=== PATIENT | male | born 1945 | race Caucasian/White ===

== ENCOUNTER 2016-11-21 11:01 | Inpatient (IN) | payer OTHER, MEDICARE ==
[~2016-11-21] VITALS: Ht 185.4 cm; Wt 93.0 kg
--- NOTE | 2016-11-21 11:20 | NUR ---
71 Y/O MALE C/O "NOT FEELING WELL" SINCE THIS AM. PT STATES HE WAS AT WORK AND HE BEGAN TO FEEL HEART RACING, L SIDED NECK PAIN, AND "DRAINED". STATES "MY ARMS FELT HEAVY, I HAD NO ENERGY". STATES SYMPTOMS LASTED APPROX 1 HOUR. FAMILY MEMBER STATES SHE CHECKED PATIENT'S PULSE AND IT WAS 170 AT THE TIME OF SYMPTOMS. IN TRIAGE, PT STATES "I FEEL GREAT". DENIES ANY COMPLAINTS PRESENTLY. HR 90'S TAKEN TO ROOM 1 FOR EKG/EVAL
--- NOTE | 2016-11-21 11:30 | NUR ---
PT TO ER ROOM 1. PA STUDENT AT BEDSIDE FOR EVAL IV EST, BLOOD WORK DRAWN AND SENT TO LAB, EKG COMPLETED ON ARRIVAL TO ROOM PT DENIES PAIN, PALPITATIONS OR SOB AT THIS TIME, STATES "I FEEL FINE NOW" PT STATES HE HAD AN EPISODE THIS AM WHEN HE FELT PAIN TO THE LEFT SIDE OF HIS CHEST. STATES THAT HE FELT WEAK AND TIRED.
[2016-11-21 11:33] LABS: ABSOLUTE BASOPHIL COUNT 0.1 /CUMM (0.0-0.2); ABSOLUTE EOSINOPHIL COUNT 0 /CUMM (0.0-0.7); ABSOLUTE GRANULOCYTE CT 9.2 /CUMM (1.4-6.5); ABSOLUTE LYMPH COUNT 1.3 /CUMM (1.2-3.4); ABSOLUTE MONOCYTE COUNT 0.7 /CUMM (0.10-0.60); BASOPHIL % 0.6 % (0.0-2.0); EOSINOPHIL % 0.2 % (0-5); MEAN CORPUSCULAR HGB CONC 34.3 G/DL (33.0-37.0); MEAN CORPUSCULAR VOLUME 90.2 FL (80.0-94.0); MEAN PLATELET VOLUME 9.8 FL (7.4-10.4); PLATELET COUNT 158 /CUMM (130-400); RBC DISTRIBUTION WIDTH 13.1 % (11.5-14.5); RED BLOOD CELL CT 5.32 /CUMM (4.70-6.10); WHITE BLOOD CELL COUNT 11.4 /CUMM (4.8-10.8)
--- NOTE | 2016-11-21 12:07 | NUR ---
PA AT BEDSIDE FOR EVAL
--- NOTE | 2016-11-21 12:14 | ED CARDIAC/CP/PALPITATIONS ---
History of Present Illness General Chief Complaint: Chest Pain Stated Complaint: CP, INCREASED HR Source: patient Exam Limitations: no limitations Vital Signs & Intake/Output Vital Signs & Intake/Output Vital Signs Date Time Temp Pulse Resp B/P B/P Pulse O2 O2 Flow FiO2 Mean Ox Delivery Rate 11/21 1455 98.6 64 18 105/72 98 Room Air 11/21 1129 98 Room Air 11/21 1116 97.1 90 16 105/72 95 Room Air Allergies Coded Allergies: No Known Allergies (11/21/16) Reconcile Medications Aspirin (Aspirin*) 81 MG TAB.CHEW 1 TAB PO QPM HEART HEALTH (Reported) Atorvastatin Calcium 10 MG TABLET 1 TAB PO QPM CHOLESTEROL (Reported) Levofloxacin 500 MG TABLET 1 TAB PO DAILY ANTIBIOTIC, INFECTION (Reported) Lisinopril 10 MG TABLET 1 TAB PO DAILY HEART (Reported) Triage Note: 71 Y/O MALE C/O "NOT FEELING WELL" SINCE THIS AM. PT STATES HE WAS AT WORK AND HE BEGAN TO FEEL HEART RACING, L SIDED NECK PAIN, AND "DRAINED". STATES "MY ARMS FELT HEAVY, I HAD NO ENERGY". STATES SYMPTOMS LASTED APPROX 1 HOUR. FAMILY MEMBER STATES SHE CHECKED PATIENT'S PULSE AND IT WAS 170 AT THE TIME OF SYMPTOMS. IN TRIAGE, PT STATES "I FEEL GREAT". DENIES ANY COMPLAINTS PRESENTLY. HR 90'S TAKEN TO ROOM 1 FOR EKG/EVAL Triage Nurses Notes Reviewed? yes Onset: Abrupt Duration: hour(s):, resolved prior to arrival Timing: single episode today Quality/Severity: moderate, severe, sharp Location: central Radiation: shoulders, arms Activities at Onset: none HPI: 71-year-old male that has a history of hypertension and cholesterol and every day smoker comes into emergency room with complaints of sudden onset chest pain left-sided that began about 1.5 hours prior to arrival that lasted for an hour. The pain radiates down his left arm into his hands. Denies any shortness of breath cough fever chills. He was recently being treated for bronchitis. Patient is currently on levaquin and Sudafed for his cough. He has no prior history of coronary disease and has never had a heart attack before. He reports that right prior to arriving here the pain improved on its own and he currently has no pain. He was given a full strength 325 aspirin. Denies any abdominal pain. He has a history of a small abdominal aortic aneurysm that is being monitored. Patient is currently pain free. (STEFFANY NOEL) Past History Travel History Traveled to [place] past 21 day No Medical History Any Pertinent Medical History? see below for history Neurological: NONE EENT: NONE Cardiovascular: hypertension, HIGH CHOLESTEROL Respiratory: NONE Gastrointestinal: NONE Hepatic: NONE Renal: NONE Musculoskeletal: NONE Psychiatric: NONE Endocrine: NONE Blood Disorders: NONE Cancer(s): NONE MARKETING WRITER/Reproductive: NONE Surgical History Surgical History: non-contributory Psychosocial History What is your primary language Comoran Tobacco Use: Current Daily Use Daily Tobacco Use Amount/Type: => 5 Cigarettes daily Family History Hx Contributory? No (STEFFANY NOEL) Review of Systems Review of Systems Constitutional: Reports: no symptoms. EENTM: Reports: no symptoms. Respiratory: Reports: no symptoms. Cardiovascular: Reports: see HPI. GI: Reports: no symptoms. Genitourinary: Reports: no symptoms. Musculoskeletal: Reports: see HPI. Skin: Reports: no symptoms. Neurological/Psychological: Reports: no symptoms. Hematologic/Endocrine: Reports: no symptoms. Immunologic/Allergic: Reports: no symptoms. All Other Systems: Reviewed and Negative (STEFFANY NOEL) Physical Exam Physical Exam General Appearance: well developed/nourished, alert, awake Head: atraumatic Eyes: Bilateral: normal appearance. Ears, Nose, Throat: normal pharynx, hearing grossly normal Neck: normal inspection Respiratory: normal breath sounds, no respiratory distress Cardiovascular: regular rate/rhythm Gastrointestinal: soft Back: normal inspection Extremities: normal inspection, normal range of motion, no edema Neurologic/Psych: awake, alert, oriented x 3, normal gait, normal mood/affect Skin: intact, normal color Core Measures ACS in differential dx? Yes Severe Sepsis Present: No Septic Shock Present: No (STEFFANY NOEL) Progress Differential Diagnosis: AMI, aortic dissection, cholecystitis, costochondritis, hyperkalemia, hypovolemia, musculoskeletal pain, myocarditis, pancreatitis, pericarditis, pneumonia, pneumothorax, pulmonary embolism, PUD/GERD, PVCs/PACs, respiratory failure, rib fracture, sepsis, unstable angina, V-fib/V-Tach Plan of Care: Orders Procedure Date/time Status Pathway - chart 11/21 1516 Active Patient Data 11/21 1516 Active Code Status 05/15 1517 Active Admit to inpatient 11/21 1513 Active EKG 11/21 1428 Active TROPONIN LEVEL 11/21 1400 Complete Add-on Test (ER Only) 11/21 1214 Active Telemetry/Social Sciences Chair 11/21 1214 Active D-DIMER 11/21 1126 Complete TROPONIN LEVEL 11/21 1125 Complete COMPREHENSIVE METABOLIC PANEL 11/21 1125 Complete CBC WITHOUT DIFFERENTIAL 11/21 1125 Complete EKG 11/21 1103 Active Pathway - chart 11/21 UNK Active House Staff 11/21 UNK Active VTE Mechanical Prophylaxis 11/21 UNK Active Telemetry/Social Sciences Chair 11/21 UNK Active CASE MANAGEMENT CONSULT 11/21 UNK Active Current Medications Sig/Kvng Start time Last Medication Dose Stop Time Status Admin Multivitamins 1 TAB DAILY 11/22 1000 UNVr (Theragran Vitamins) Aspirin 325 MG ONCE ONE 11/21 1515 CAN (Aspirin) 11/21 1516 Laboratory Tests 11/21/16 1415: Troponin I 1.95 *H 11/21/16 1126: Anion Gap 15, Estimated GFR > 60, BUN/Creatinine Ratio 10.8, Glucose 100 H, Calcium 9.0, Total Bilirubin 1.0, AST 31, ALT 45, Alkaline Phosphatase 88, Troponin I 0.10, Total Protein 6.8, Albumin 4.1, Globulin 2.7, Albumin/Globulin Ratio 1.5, D-Dimer 390 H, CBC w Diff NO MAN DIFF REQ, RBC 5.32, MCV 90.2, MCH 31.0, RDW 13.1, MPV 9.8, Gran % 81.0 H, Lymphocytes % 11.8 L, Monocytes % 6.4, Eosinophils % 0.2, Basophils % 0.6, Absolute Granulocytes 9.2 H, Absolute Lymphocytes 1.3, Absolute Monocytes 0.7 H, Absolute Eosinophils 0, Absolute Basophils 0.1, PUBS MCHC 34.3 Diagnostic Imaging: Viewed by Me: Radiology Read, CT Scan. Discussed w/RAD: Radiology Read, CT Scan. Radiology Impression: SERVICE DATE: 11/21/16-0 EXAM TYPE: CAT - CTA CHEST- PULMONARY EMBOLISM EXAMINATION: CT ANGIOGRAM OF THE CHEST WITH CONTRAST (CT PULMONARY ANGIOGRAM FOR PE) CLINICAL INFORMATION: Chest pain and elevated D- dimer. Evaluate for pulmonary embolism. COMPARISON: CXR from 11/21/2016 TECHNIQUE: Prior to contrast administration, noncontrast localization images were obtained. Subsequently, multidetector volumetric imaging was performed from the thoracic inlet to below the diaphragms following the administration of 94 mL of Optiray 350 intravenous contrast. No contrast reaction reported. Sagittal, coronal, and MIP oblique sagittal reformatted images were obtained on the CT workstation, uploaded to PACS, and reviewed. Total exam dose-length product 438 mGy-cm FINDINGS: QUALITY OF STUDY/CONTRAST BOLUS: Satisfactory. PULMONARY ARTERIES: No filling defects in the main, lobar or segmental vessels. THORACIC AORTA: Mild atherosclerotic calcification of the thoracic aorta without intramural hematoma or dissection. The aortic root measures 3.7 cm diameter. At the level of the right pulmonary artery, the mildly dilated ascending thoracic aorta is 4 cm AP, 4 cm transverse diameter. At the mid arch, aorta is 3.2 cm transverse diameter. The proximal and distal descending aorta measure 3.5 cm and 3.3 cm in short axis diameter, respectively. LUNGS AND PLEURA: Huvx-of-kjizyepn centrilobular emphysema which has an upper lobe predominance. Mild paraseptal emphysema at the lung apices, as well. There is mild thickening of bronchial valentin in both lungs. Correlate for history of chronic cigarette smoking. Mild atelectasis in the dependent aspect of the right lower lobe. The left lower lobe bronchus is occluded and the left lower lobe is completely collapsed. Although the lower lobe bronchus may be occluded by mucous, an underlying nodule is difficult to exclude. There is no evidence of an infiltrative mass around the hilum. Mild secretions layer along the posterior wall of the left mainstem bronchus. MEDIASTINUM: The heart size is normal. Mild atherosclerotic calcification of coronary arteries. No pericardial effusion. The esophagus and thyroid gland are unremarkable. LYMPHATICS: No pathologic sized axillary lymph nodes. A right hilar lymph node is 1 cm short axis dimension. There is no evidence of bulky adenopathy at either hilum. A lymph node of the aortopulmonary window is mildly enlarged, measuring 1.1 cm short axis dimension. There are no enlarged paratracheal or subcarinal lymph nodes. UPPER ABDOMEN: Unremarkable. No reflux of contrast into the hepatic veins to suggest elevated right heart pressures. OSSEOUS STRUCTURES: Mild, multilevel degenerative disc space narrowing and osteophyte formation of the thoracic spine. 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 No aggressive osseous lesions. IMPRESSION: 1. No evidence of pulmonary embolism. 2. Pulmonary emphysema and mild bronchial wall thickening of both lungs; correlate for history of chronic cigarette smoking. 3. Left lower lobe is completely collapsed. This is probably due to mucous plugging of the left lower lobe bronchus; however, unable to exclude underlying endobronchial nodule. Further evaluation with bronchoscopy may be required. There is no gross tumor or lymphadenopathy identified at the left hilum. A nonspecific, borderline-enlarged lymph node in the aortopulmonary window is 1.1 cm short axis dimension. 4. Atherosclerotic aorta is mildly dilated. The ascending aorta measures 4 cm diameter at the level of the right pulmonary artery., EXAM TYPE: RAD - XRY-CHEST XRAY, PA AND LATERAL EXAMINATION: XR CHEST CLINICAL INFORMATION: Chest pain COMPARISON: None TECHNIQUE: 2 views of the chest were obtained. FINDINGS: Cardia mediastinal silhouette is within normal limits. Prominence of the pulmonary markings likely represent chronic change. No acute airspace opacity. There is no pleural effusion. IMPRESSION: No acute pulmonary disease. Chronic changes. DICTATED BY: TANYA UREÑA MD DATE/TIME DICTATED:11/21/161244 RN PICU:[facility] DATE/TIME TRANSCRIBED:11/21/161244 CONFIDENTIAL, DO NOT COPY WITHOUT APPROPRIATE AUTHORIZATION. Initial ED EKG: normal intervals, normal p-waves, normal sinus rhythm, rate (90) , RBBB Repeat EKG: unchanged (STEFFANY NOEL) Departure Departure Disposition: STILL A PATIENT Condition: Stable Clinical Impression Primary Impression: Non-STEMI (non-ST elevated myocardial infarction) Referrals: SAMIA FRANZ,ARELIS Storm (PCP/Family) Departure Forms: Customer Survey General Discharge Information (STEFFANY NOEL) Admission Note Spoke With: CALE HILTON MD Documentation of Exam: Documentation of any treatments & extenuating circumstances including Concerns Regarding Discharge (functional status, medication knowledge or non-compliance, living conditions, etc.) that warrant an admission rather than observation: [The patient needs admission to the ICU for serial troponins, cardiology consultation , inpatient echocardiogram, consider IV anti-coagulation] I've seen and personally examined the patient and I agree with the PAs evaluation. He had a sudden episode of chest pain earlier today. No chest pain now in the Emergency Department. Second troponin was positive. He is being admitted to the ICU by his behavioral health care manager Dr. Hilton for further evaluation and care (MERISSA NUGENT DO) Critical Care Note Critical Care Note Critical Care Time: 30-74 min (40) (DONNY PELAYO,STEFFANY)
--- NOTE | 2016-11-21 12:24 | NUR ---
PT TO AND FROM XRAY
[2016-11-21] MEDS ORDERED: LISINOPRIL10 M1 PO (12:31)
[2016-11-21] MEDS ORDERED: ATORVASTATIN CA10 M1 PO (12:31)
[2016-11-21] MEDS ORDERED: ASPIRIN81 M4 PO (12:32)
[2016-11-21] MEDS ORDERED: LEVOFLOXACIN500 M1 PO (12:32)
--- NOTE | 2016-11-21 12:57 | RADIOLOGY REPORT ---
EXAMINATION: XR CHEST CLINICAL INFORMATION: Chest pain COMPARISON: None TECHNIQUE: 2 views of the chest were obtained. FINDINGS: Cardia mediastinal silhouette is within normal limits. Prominence of the pulmonary markings likely represent chronic change. No acute airspace opacity. There is no pleural effusion. IMPRESSION: No acute pulmonary disease. Chronic changes.
--- NOTE | 2016-11-21 12:58 | NUR ---
PT WILL HAVE REPEAT TROPONIN AND EKG AT 1400 PT AND FAMILY AWARE PT REMAINS CHEST PAIN FREE, REMAINS NSR ON MONITOR
--- NOTE | 2016-11-21 13:18 | NUR ---
PT TO AND FROM CT SCAN AT THIS TIME, PLACED BACK ON MECHANICAL LABORATORY TECHNICIAN
--- NOTE | 2016-11-21 13:41 | CT SCAN REPORT ---
EXAMINATION: CT ANGIOGRAM OF THE CHEST WITH CONTRAST (CT PULMONARY ANGIOGRAM FOR PE) CLINICAL INFORMATION: Chest pain and elevated D-dimer. Evaluate for pulmonary embolism. COMPARISON: CXR from 11/21/2016 TECHNIQUE: Prior to contrast administration, noncontrast localization images were obtained. Subsequently, multidetector volumetric imaging was performed from the thoracic inlet to below the diaphragms following the administration of 94 mL of Optiray 350 intravenous contrast. No contrast reaction reported. Sagittal, coronal, and MIP oblique sagittal reformatted images were obtained on the CT workstation, uploaded to PACS, and reviewed. Total exam dose-length product 438 mGy-cm FINDINGS: QUALITY OF STUDY/CONTRAST BOLUS: Satisfactory. PULMONARY ARTERIES: No filling defects in the main, lobar or segmental vessels. THORACIC AORTA: Mild atherosclerotic calcification of the thoracic aorta without intramural hematoma or dissection. The aortic root measures 3.7 cm diameter. At the level of the right pulmonary artery, the mildly dilated ascending thoracic aorta is 4 cm AP, 4 cm transverse diameter. At the mid arch, aorta is 3.2 cm transverse diameter. The proximal and distal descending aorta measure 3.5 cm and 3.3 cm in short axis diameter, respectively. LUNGS AND PLEURA: Ypra-ac-[id number] centrilobular emphysema which has an upper lobe predominance. Mild paraseptal emphysema at the lung apices, as well. There is mild thickening of bronchial valentin in both lungs. Correlate for history of chronic cigarette smoking. Mild atelectasis in the dependent aspect of the right lower lobe. The left lower lobe bronchus is occluded and the left lower lobe is completely collapsed. Although the lower lobe bronchus may be occluded by mucous, an underlying nodule is difficult to exclude. There is no evidence of an infiltrative mass around the hilum. Mild secretions layer along the posterior wall of the left mainstem bronchus. MEDIASTINUM: The heart size is normal. Mild atherosclerotic calcification of coronary arteries. No pericardial effusion. The esophagus and thyroid gland are unremarkable. LYMPHATICS: No pathologic sized axillary lymph nodes. A right hilar lymph node is 1 cm short axis dimension. There is no evidence of bulky adenopathy at either hilum. A lymph node of the aortopulmonary window is mildly enlarged, measuring 1.1 cm short axis dimension. There are no enlarged paratracheal or subcarinal lymph nodes. UPPER ABDOMEN: Unremarkable. No reflux of contrast into the hepatic veins to suggest elevated right heart pressures. OSSEOUS STRUCTURES: Mild, multilevel degenerative disc space narrowing and osteophyte formation of the thoracic spine. 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 No aggressive osseous lesions. IMPRESSION: 1. No evidence of pulmonary embolism. 2. Pulmonary emphysema and mild bronchial wall thickening of both lungs; correlate for history of chronic cigarette smoking. 3. Left lower lobe is completely collapsed. This is probably due to mucous plugging of the left lower lobe bronchus; however, unable to exclude underlying endobronchial nodule. Further evaluation with bronchoscopy may be required. There is no gross tumor or lymphadenopathy identified at the left hilum. A nonspecific, borderline-enlarged lymph node in the aortopulmonary window is 1.1 cm short axis dimension. 4. Atherosclerotic aorta is mildly dilated. The ascending aorta measures 4 cm diameter at the level of the right pulmonary artery.
--- NOTE | 2016-11-21 14:18 | NUR ---
SST REDRAWN AND SENT BY THIS MST.
--- NOTE | 2016-11-21 15:00 | NUR ---
PT REMAINS RESING ON STRETCHER, OFFERS NO COMPLAINTS
--- NOTE | 2016-11-21 15:07 | NUR ---
CRITICAL TEST RESULTS [id number] BRIONNA MARTINEZ 71 M TESTS AND RESULTS: TROPONIN 1.95 Results received and read back by: DAO GRANDE Results received date and time: 11/21/16 1508 The following provider was notified of the results, and read the results back: GITA HINES Notified date and time: 11/21/16 at 1508
--- NOTE | 2016-11-21 15:15 | NUR ---
AND PA AT BEDSIDE TO DISCUSS RESULTS AND PLAN OF CARE WITH PT AND FAMILY. PT MEDICATED WITH ASPIRIN PER ORDER AT THIS TIME. PT REMAINS PAIN FREE AT THIS TIME.
--- NOTE | 2016-11-21 15:16 | NUR ---
HEART HEALTHY TRAY ORDERED FOR PT AT THIS TIME, PER PA IT WAS OK
--- NOTE | 2016-11-21 15:16 | History & Physical ---
MARIA L CRUMP MD 11/21/16 1516: General Information and HPI MD Statement: I have seen and personally examined BRIONNA MARTINEZ and documented this H&P. The patient is a 71 year old M who presented with a patient stated chief complaint of [shortness of breath and CP]. Source of Information: patient, old records History of Present Illness: This is a 71-year-old male with a past medical history of hypertension hyperlipidemia who presented to the [facility] with persistent shortness of breath and chest pain that started at around 9 AM in the morning. The patient was doing his regular daily office work when he started having this sharp chest pain which he rated 9 on 10, radiating to the left arm associated with numbness and tingling of his left hand fingers. He also experienced diaphoresis and had shortness of breath and had to stop from his paperwork. He was given 1 mg of aspirin in the field by his coworkers and then was brought to the emergency department for further evaluation. Since he has been here the patient has been pain-free and when I saw the patient he did not exhibit any signs of chest pain. The patient did not have any prior episodes similar to this. He recently had a stress test done after he was recommended by his primary care physician to diesel dinkey engineer. This stress test was reviewed in the emergency department end of within normal limits with the patient also recently The patient was recently treated with acute bronchitis and is left with 3 days antibiotic therapy of levofloxacin.(He was given a course of 10 days of antibiotic therapy started from last 11/14/2016). His symptoms of acute bronchitis has resolved Allergies/Medications Allergies: Coded Allergies: No Known Allergies (11/21/16) Home Med list Aspirin (Aspirin*) 81 MG TAB.CHEW 1 TAB PO QPM HEART HEALTH (Reported) Atorvastatin Calcium 10 MG TABLET 1 TAB PO QPM CHOLESTEROL (Reported) Atorvastatin Calcium 80 MG TABLET 80 MG PO 1700 HYPERLIPIDEMIA Heparin Sod,Pork in 0.45% NaCl (Heparin-1/2NS 25,000 Units/250) 25,000 UNIT/250 ML (100 UNIT/ML) IV.SOLN 500 ML IV CONTINOUS INFUSION HEART HEALTH Levofloxacin 500 MG TABLET 1 TAB PO DAILY ANTIBIOTIC, INFECTION (Reported) Lisinopril 10 MG TABLET 1 TAB PO DAILY HEART (Reported) Metoprolol Tartrate 25 MG TABLET 12.5 MG PO BID BLOOD PRESSURE Ticagrelor (Brilinta) 90 MG TABLET 90 MG PO DAILY HEART HEALTH Past History Travel History Traveled to [place] past 21 day No Medical History Neurological: NONE EENT: NONE Cardiovascular: hypertension, HIGH CHOLESTEROL Respiratory: NONE Gastrointestinal: NONE Hepatic: NONE Renal: NONE Musculoskeletal: NONE Psychiatric: NONE Endocrine: NONE Blood Disorders: NONE Cancer(s): NONE INTERNAL CONSULTANT/Reproductive: NONE Surgical History Surgical History: non-contributory Past Family/Social History Family History Relations & Conditions if any FATHER Relation not specified for: FH myocardial infarction male first degree age known Psychosocial History Where do you live? Home Who Do You Live With? spouse, child Services at Home: None Primary Language: [place] Smoking Status: Current Everyday Smoker ETOH Use: denies use Review of Systems Review of Systems Constitutional: Reports: see HPI. Cardiovascular: Reports: see HPI. Denies: chest pain, edema. Respiratory: Reports: short of breath. Denies: cough, hemoptysis, sputum production, stridor. Exam & Diagnostic Data Last 24 Hrs of Vital Signs/I&O Vital Signs Date Time Temp Pulse Resp B/P B/P Pulse O2 O2 Flow FiO2 Mean Ox Delivery Rate 11/21 1455 98.6 64 18 105/72 98 Room Air 11/21 1129 98 Room Air 11/21 1116 97.1 90 16 105/72 95 Room Air Intake & Output 11/21 1600 11/21 0800 11/21 0000 Intake Total Output Total Balance Patient 205 lb Weight Weight Reported by Patient Measurement Method Physical Exam General Appearance Alert, Oriented X3, Cooperative Skin No Rashes, No Breakdown Skin Temp/Moisture Exam: Cool/Dry Sepsis Skin Exam (color): Normal for Ethnicity HEENT Atraumatic, PERRLA Neck Supple, No JVD Lymphatic Axillary nl, Cervical nl Cardiovascular Regular Rate, Normal S1, Normal S2 Lungs Clear to Auscultation, Normal Air Movement, b/l decreased airway entry Assessment/Plan Assessment: This is a 71-year-old male with a past medical history of hypertension, every day smoker, hyperlipidemia presented to the [facility] with persistent shortness of breath and diaphoresis and shortness and chest pain Is at the time of admission showed blood pressure 105/70, respiration rate of 16 , heart rate of 90, saturation of 95% in room air, afebrile, Labs shows WBC of 11,000, normal hemoglobin and hematocrit, creatinine of 1.2, GFR greater than 60, troponin of 0.10 and then 1.91 EKG shows normal sinus rhythm with ST depressions in lead 23 aVF Chest x-ray unremarkable CTA was negative for any acute pulmonary embolism but was significant for emphysema to Ms. changes Assessment 1. Acute chest pain in the setting of non-ST elevation IL. The patient's TYRELL score is 4 which puts him in intermediate risk 2. History of hypertension 3. History of hyperlipidemia 4. Every day smoker and acute Bronchitis cureently being treated with Levofloxacin,left with 3 days of abx therapy Plan Admit to critical care unit for hemodynamic monitoring Trend serial troponins and EKG next troponin is at 8 PM I will start the patient on IV heparin(the patient refused direct rectal examination as he had colonoscopy 1 month back which was negative for any polyps or any bleeding) The patient should be on a high-dose statin, 40 mg(his home dose is 10 mg only). He should be on a P2 Y 12 inhibitor. Hence I will start the patient on Plavix 325 mg loading dose and 75 mg daily Patient should be kept nothing by mouth after midnight for possible transfer cardiac cath in the morning Smoking cessation counseling C/w Levofloxacin for acute bronchitis(3 doses lefts) Asess lipid panel,hba1c we can hold off on the beta james at this point that the patient is slightly hypotensive and we discussed with the diesel dinkey engineer for further recommendations on this point DVT prophylaxis with IV heparin as mentioned above Patient is full code Plan discussed in detail with the patient and the family at bedside. As Ranked By This Provider Problem List: 1. Non-STEMI (non-ST elevated myocardial infarction) Core Measures/Miscellaneous Acute Coronary Syndrome ACS Diagnosis: Yes Date of most recent Echo 10/10/16 Last Known EF % 60 TERESITA/ARB For EF <40% No ASA W/I 24hr of admit Yes Beta-James W/I 24hrs No No Beta-James d/t Hypotension LDL assessed W/I 24 hrs Yes Currently on Statin Yes Cerebrovascular Accident CVA/TIA Diagnosis: No Congestive Heart Failure CHF Diagnosis: No Venous Thromboembolism VTE Risk Factors: Acute medical illness, Age > 40 No [facility] VTE prophylaxis d/t: VTE low risk, No contraindications No VTE Pharm Prophylaxis d/t: VTE low risk, No contraindications VTE Diagnosis: No VTE Type: NONE VTE Confirmed by (Test): NONE Severe Sepsis Severe Sepsis Present: No Septic Shock Septic Shock Present: No Miscellaneous Documentation Attending Case Discussed With: dr kohli Primary Care Physician: ARELIS GRACIA MD Patient sees these Specialists none Level of Patient Care: Critical Care (CRI) CALE KOHLI MD 11/21/16 1806: Attending MD Review Statement Attending Statement Attending MD Statement: examined this patient, discuss w/resident/PA/BUYER PLANNER, agreed w/resident/PA/BUYER PLANNER, discussed with family, reviewed EMR data (avail), discussed with nursing, reviewed images, amended to note Attending Assessment/Plan: The patient is a 71-year-old male with history of hypertension and hyperlipidemia who presents with chest discomfort. He was recently treated with diabetic therapy for acute bronchitis. He is followed in the office by Dr. Gamboa from my group. He presented with complaint of dull left-sided chest discomfort which lasted for several hours and resolved in the emergency department. He is now pain-free. He notes intermittent shortness of breath. No diaphoresis. No palpitations. No nausea or vomiting. Review of systems: No fever. No chills. No rash. No tremor. No melena. All other systems were reviewed, and were noted to be negative. Physical examination: Gen: The patient is in no acute distress HEENT: Normal nose, ears, and oropharynx. Pupils equal bilaterally. Conjunctiva normal. Neck: Supple with no JVD, no masses, and no thyromegaly Lungs: Decreased breath sounds in left lower lobe, with normal respiratory effort Heart: RRR, S1, S2, no murmurs. No peripheral edema, 2+ pulses in the lower extremities bilaterally Abdomen: Soft, nontender, no masses. No hepatomegaly. No splenomegaly Extremities: No clubbing or cyanosis. Normal muscle strength in the upper and lower extremities Skin: Normal skin turgor with no skin ulcers or lesions noted. Neuro: Cranial nerves intact. Sensation intact Psych: Alert and oriented 3 with appropriate affect EKG tracing is independently reviewed, and reveals normal sinus rhythm at 90 with right bundle-branch block Stress echo 09/30/16: Normal left ventricular function. No evidence of ischemia or infarct. Chest x-ray: No acute pulmonary disease. Chronic changes. CTA chest: 1. No evidence of pulmonary embolism. 2. Pulmonary emphysema and mild bronchial wall thickening of both lungs; correlate for history of chronic cigarette smoking. 3. Left lower lobe is completely collapsed. This is probably due to mucous plugging of the left lower lobe bronchus; however, unable to exclude underlying endobronchial nodule. Further evaluation with bronchoscopy may be required. There is no gross tumor or lymphadenopathy identified at the left hilum. A nonspecific, borderline-enlarged lymph node in the aortopulmonary window is 1.1 cm short axis dimension. 4. Atherosclerotic aorta is mildly dilated. The ascending aorta measures 4 cm diameter at the level of the right pulmonary artery. Assessment: The patient is a 71-year-old male with history of hypertension and hyperlipidemia, who had a recent normal stress echo 2 months ago. He was diagnosed 3 days ago with bronchitis, and now presents with left-sided chest discomfort. Second troponin is positive, suggestive of non-ST elevation myocardial infarction. He is pain-free now. CTA of the chest shows collapse of left lower lobe and mucous plugging. Plain: * Admit for NSTEMI * IV heparin per protocol * ASA 325 mg givein. Continue 81 mg daily * Brilinta 180 mg po x 1 and then 90 mg daily * Metoprolol 12.5 mg po bid * Stop Plavix (75 mg already given) * Atorvastatin 80 mg daily * NPO after MN * If pt. remains stable overnight, will transfer to [facility] in the AM for cardiac catheterization and possible PCI * Pulmonary consult for left lower lobe collapse
--- NOTE | 2016-11-21 15:55 | NUR ---
PT SITTING UP EATING FOOD TRAY AT THIS TIME
--- NOTE | 2016-11-21 16:11 | NUR ---
HEPARIN STARTED AT THIS TIME PER ORDER, VERIFIED WITH DAO METZGER PRIOR TO ADMINISTRATION RATE: 20ML/HR
--- NOTE | 2016-11-21 16:18 | NUR ---
[facility] CALLED FOR MEDS AT THIS TIME
--- NOTE | 2016-11-21 17:45 | NUR ---
PT REMAINS PAIN FREE AT THIS TIME, RESTING ON STRETCHER FAMILY REMAINS AT BEDSIDE
--- NOTE | 2016-11-21 17:46 | NUR ---
PT ADMITTED TO ROOM 112
--- NOTE | 2016-11-21 18:01 | NUR ---
ATTEMPTED TO CALL REPORT TO ICU, RN WILL CALL BACK
--- NOTE | 2016-11-21 18:16 | NUR ---
PT MEDICATED PER EMAR AT THIS TIME. DR HILTON AT BEDSIDE
--- NOTE | 2016-11-21 18:41 | NUR ---
REPORT GIVEN TO FLOOR DISITBUTION CALLED FOR TRANSORT
--- NOTE | 2016-11-21 19:12 | Discharge Summary ---
Visit Information Visit Dates Admission Date: 11/21/16 Discharge Date: 11/22/2016 Hospital Course Course Attending Physician: CALE HILTON MD Primary Care Physician: SAMIA FRANZ,ARELIS Storm Other Care Providers: Consulting Request: Consulting Specialty: Cardiology Consulting Physician: Dr Hilton Reason for Consult: NSTEMI Hospital Course: Patient is a 71-year-old male with past medical history of smoking, hypertension , hyperlipidemia presented to the ED for shortness of breath and chest pain since 9 AM in the morning. Vitals at admission showed a temperature of 97.1, pulse 90, respirations 16, blood pressure of 105/72. Labs showed a white count of 11.4, sodium 139, potassium 3.8, troponin 1.95, normal thyroid function, normal lipid levels She is, d-dimer 390. EKG showed normal sinus rhythm with ST depressions in lead II,III and aVF Chest x-ray showed no acute pulmonary disease. Chest CTA showed no evidence of pulmonary embolism. Emphysematous changes, Left lower lobe collapse questionable mucous plugging, mild dilation of ascending aorta at 4 cm. Problem list: 1. Non-ST elevation CO: Patient had a classic presentation of NSTEMI with substernal chest pain 10/10 in intensity radiating to the left arm with numbness and tingling of his fingers. He received 1 mg aspirin in the field by his coworkers and was brought to the ED. In the ED he received 325 aspirin, IV morphine, and was started on IV heparin (patient denied rectal examination as he had colonoscopy recently which was normal). Initial troponin was elevated at 1.[address] depressions in leads II, III and aVF. Patient remained completely chest pain-free after coming to the hospital. Troponins trended up to 2.61. As per the patient, his recent stress test and echocardiogram 1 month ago was normal.Since his TYRELL score was 4, and the plan was to send him for cardiac catheterization. Patient was started on beta doretha metoprolol 12.5 twice a day, high-dose statin, loaded with Brilinta and closely monitored for hemodynamic stability in the ICU overnight. He was maintained nothing by mouth for a cardiac catheterization at [facility] in a.m. 2. Hypertension: Patient currently on metoprolol 12.5 twice a day with holding parameters. 3. Hyperlipidemia: Lipid panel normal. Maintained on Atorvastatin 40 mg daily. 4. A previous smoker: Smoking cessation counseling 5. DVT Prophylaxsis : IV heparin 6. NPO for cardiac cath in am 7. Full code Allergies: Coded Allergies: No Known Allergies (11/21/16) Disposition Summary Disposition Principal Diagnosis: NSTEMI Additional Diagnosis: Hypertension Discharge Disposition: other general hospital Discharge Instructions General Discharge Information Code Status: Full Code Patient's Diet: Nothing by mouth after midnight for cardiac catheterization in a.m. Patient's Activity: As tolerated Follow-Up Instructions/Appts: Please follow-up with the electrical systems designer after discharge. Medications at Discharge Discharge Medications: Stop taking the following medications: Lisinopril (Lisinopril) 10 MG TABLET ORAL DAILY Atorvastatin Calcium (Atorvastatin Calcium) 10 MG TABLET ORAL Every night Qty = 90 Continue taking these medications: Aspirin (Aspirin*) 81 MG TAB.CHEW 1 Tablet ORAL Every night Levofloxacin (Levofloxacin) 500 MG TABLET 1 Tablet ORAL DAILY Qty = 10 Start taking the following new medications: Ticagrelor (Brilinta) 90 MG TABLET 90 Milligram ORAL DAILY Days = 30 No Refills Atorvastatin Calcium (Atorvastatin Calcium) 80 MG TABLET 80 Milligram ORAL 5 PM Days = 30 No Refills Metoprolol Tartrate (Metoprolol Tartrate) 25 MG TABLET 12.5 Milligram ORAL TWICE DAILY Days = 30 No Refills Heparin Sod,Pork in 0.45% NaCl (Heparin-1/2NS 25,000 Units/250) 25,000 UNIT/250 ML (100 UNIT/ML) IV.SOLN 500 Milliliters INTRAVEN CONTINUOUS INFUSION Days = 1 No Refills Copies To: LIDA FRANZ,CALE
--- NOTE | 2016-11-21 19:48 | NUR ---
REC'D THE PT FROM THE ER AT 1850. PT IS A&OX3,LOWRY. TRANSFERRED SELF TO THE BED WITHOUT INCIDENT. OFFERS NO C/O CHEST PAIN. PT IS ON A HEPARIN GTT AT 10.4U//KG/HR OR 20ML/HR INFUSING VIA A #20 TO THE RAC. ORIENTED TO THE CRCU ROUTINE. GIVEN PT'S WALLET. PT MADE AWARE OF PLAN TO TRANSFER THE PT TO [facility] IN THE AM TO HAVE A CARDIAC CATH PERFORMED. ALSO MADE AWARE CANOT EAT ANYTHING AFTER MIDNIGHT. PT REFUSED VRE SWAB.
[2016-11-21] MEDS ORDERED: HEPARIN-1/25000 UNIT IV (19:56)
[2016-11-21] MEDS ORDERED: METOPROLOL TART25 M1 PO (19:58)
[2016-11-21] MEDS ORDERED: BRILINTA90 M1 PO (19:58)
[2016-11-21] MEDS ORDERED: ATORVASTATIN CA80 M1 PO (19:58)
[2016-11-21 20:00] VITALS: BP 128/72
--- NOTE | 2016-11-21 20:00 | Patient Discharge Instructions ---
Discharge Instructions General Discharge Information You were seen/treated for: Chest pain, NSTEMI Special Instructions: You're being transferred to [facility] for cardiac catheterization Please follow up with Dr. Fernández within 2 weeks of discharge for further care and management of left lower lobe mucous plug. Diet Continue normal diet: No Recommended Diet: NPO FOR CARDIAC CATH Activity Full Activity/No Limits: Yes ( TOLERATED) Acute Coronary Syndrome Inclusion Criteria At DC or during hospital stay patient has or had the following: ACS DIAGNOSIS Yes Discharge Core Measures Meds if any: Prescribed or Continued at Discharge TERESITA/ARB if EF <40% No Aspirin Yes Beta-James Yes Statin Yes Meds if any: NOT Prescribed or Continued at Discharge No TERESITA/ARB d/t LOW BLOOD PRESSURE (ECHO NOT AVAILABLE FOR EF) Congestive Heart Failure Inclusion Criteria At DC or during hospital stay patient has or had the following: CHF DIAGNOSIS No Discharge Core Measures Meds if any: Prescribed or Continued at Discharge Meds if any: NOT Prescribed or Continued at Discharge Cerebrovascular accident Inclusion Criteria At DC or during hospital stay patient has or had the following: CVA/TIA Diagnosis No Discharge Core Measures Meds if any: Prescribed or Continued at Discharge Meds if any: NOT Prescribed or Continued at Discharge Venous thromboembolism Inclusion Criteria VTE Diagnosis No VTE Type NONE VTE Confirmed by (Test) NONE Discharge Core Measures - Per Current guidelines, there needs to be overlap - treatment for the first 5 days of Warfarin therapy. - If discharged on Warfarin prior to 5 days of - overlap therapy, the patient will need to be - assessed for post discharge needs including - *Post discharge parental anticoagulation - *Warfarin and/or parental anticoagulation education - *Follow up date to check INR post discharge At least 5 days overlap therapy as Inpatient No Meds if any: Prescribed or Continued at Discharge Note: Overlap Therapy is Warfarin and Anticoagulant Meds if any: NOT Prescribed or Continued at Discharge
[2016-11-21 21:58] LABS: PTT 57 SEC (25-37)
[2016-11-22] VITALS: BP 126/80
--- NOTE | 2016-11-22 02:51 | NUR ---
pt c/o chest heaviness and dull ache. states that previous episode started that way. per pt pain is not as bad as chestpain that brought him to the er but worse than earlier tonight. pt ekg and troponin done at time of pain. dr. nieves made aware of above. pt given oxygen 2L nc. pt hear rate of 43-50 also reported to md. awaiting md to evaluate pt.
[2016-11-22 05:46] LABS: ABSOLUTE BASOPHIL COUNT 0.1 /CUMM (0.0-0.2); ABSOLUTE EOSINOPHIL COUNT 0.1 /CUMM (0.0-0.7); ABSOLUTE GRANULOCYTE CT 6.4 /CUMM (1.4-6.5); ABSOLUTE LYMPH COUNT 2.1 /CUMM (1.2-3.4); ABSOLUTE MONOCYTE COUNT 0.7 /CUMM (0.10-0.60); BASOPHIL % 0.7 % (0.0-2.0); GRANULOCYTE % 68.6 % (42.2-75.2); HEMATOCRIT 44.8 % (42-52); MEAN CORPUSCULAR HGB 31.1 PG (27.0-31.0); MEAN CORPUSCULAR HGB CONC 33.9 G/DL (33.0-37.0); MEAN CORPUSCULAR VOLUME 91.9 FL (80.0-94.0); MEAN PLATELET VOLUME 9.9 FL (7.4-10.4); PLATELET COUNT 145 /CUMM (130-400); RBC DISTRIBUTION WIDTH 13.1 % (11.5-14.5); RED BLOOD CELL CT 4.88 /CUMM (4.70-6.10); WHITE BLOOD CELL COUNT 9.3 /CUMM (4.8-10.8)
[2016-11-22 05:53] LABS: PTT 95 SEC (25-37)
--- NOTE | 2016-11-22 07:02 | PN- Resident CRCU ---
Subjective HPI/CRCU Issues: Mr. Mcrae was admitted yesterday evening after noted NSTEMI under attending Dr. Salomon Templeton MD. Patient did note chest pain over night for which he received nitro paste. Patient continues to endorse subtle substernal chest discomfort without current left arm pain/numbness/tingling. He also notes slight respiratory discomfort which he attributes to his bronchitis that he is currently undergoing treatment for. Patient is amenable to transfer for cardiac cath today. 24 Hour Events: Telemetry events: Patient noted to be bradycardic to 40s, otherwise no significant events. Troponin trend: 0.1--> 1.96 --> 2.61--> 1.67 with non-specific ST changes. Vital signs last 24 hours: T 97.6-98.0, HR 44-63, RR 16-24, BP 116-154/79-104, O2 saturation 94-98% on room air transitioned to 2 L NC. Total intake last 24 hours: 950 cc Total output: 1400 cc Objective Vital Signs & I&O Last 8 Hrs of Vitals and I&O: T 97.6-98.0, HR 44-63, RR 16-24, BP 116-154/79-104, O2 saturation 94-98% on room air transitioned to 2 L NC. Exam General Appearance: well developed/nourished, no apparent distress, alert, awake , comfortable Head: atraumatic, normal appearance Ears, Nose, Throat: normal pharynx, normal ENT inspection, hearing grossly normal Neck: normal inspection, supple, No JVD Respiratory: normal breath sounds, chest non-tender, no respiratory distress Cardiovascular: regular rate/rhythm Gastrointestinal: normal bowel sounds, soft, non-tender Extremities: normal inspection, normal range of motion, no edema Cranial Nerves: normal hearing, normal speech Skin: intact, normal color, warm/dry Nutrition Nutrition: NPO Current Medications: Current Medications Sig/Kvng Start time Last Medication Dose Route Stop Time Status Admin Acetaminophen 650 MG Q6P PRN 11/21 1530 AC 11/22 PO 0839 Acetaminophen/ 1 TAB Q6P PRN 11/21 1530 AC Hydrocodone Bitart PO Aspirin 81 MG DAILY 11/22 1000 AC PO Aspirin 0 .STK-MED ONE 11/21 1517 DC PO Aspirin 325 MG ONCE ONE 11/21 151 DC 11/21 PO 05/15 1516 1515 Aspirin 325 MG ONCE ONE 11/21 1515 CAN PO 11/21 1516 Atorvastatin Calcium 80 MG 1700 11/22 1700 AC PO Atorvastatin Calcium 40 MG ONCE ONE 11/21 1845 DC 11/21 PO 11/21 184 2128 Atorvastatin Calcium 40 MG 1700 11/21 1700 DC 11/21 PO 1632 Clopidogrel Bisulfate 75 MG DAILY 11/21 1610 DC 11/21 PO 1632 Heparin Sodium 2,790 UNIT BOLUS ONE 11/21 2300 DC 11/21 (Porcine) IV 11/21 2301 2300 Heparin Sodium 5,000 UNIT .STK-MED ONE 11/21 2300 DC (Porcine) IV 11/21 2301 Heparin Sodium 25,000 UNIT Q24H 11/21 1545 AC 11/21 (Porcine) IV 1609 Sodium Chloride 500 ML Levofloxacin 500 MG DAILY 11/21 1630 AC 11/21 PO 11/23 1001 1815 Magnesium Sulfate 1 GM ONCE ONE 11/22 0730 AC 11/22 Dextrose/Water 100 ML IV 11/22 1129 0844 Metoprolol Tartrate 12.5 MG BID 11/21 1845 AC 11/21 PO 2127 Morphine Sulfate 2 MG Q4P PRN 11/21 1530 AC IV Multivitamins 1 TAB DAILY 11/22 1000 AC PO Nitroglycerin 1 GM ONCE ONE 11/22 0245 DC 11/22 TOP 11/22 0246 0301 Norepinephrine 4 MG Q24H 11/21 2145 DC Sodium Chloride 250 ML IV Potassium Chloride 10 MEQ Q1H 11/22 0930 UNVr IV 11/22 1031 Senna/Docusate Sodium 2 TAB ONCE ONE 11/21 2030 DC 11/21 PO 11/21 2031 2127 Ticagrelor 90 MG DAILY 11/22 1000 AC PO Ticagrelor 180 MG ONCE ONE 11/21 1845 DC 11/21 PO 11/21 184 2130 CXR Findings: IMPRESSION: No acute pulmonary disease. Chronic changes. EKG Findings: NSR, ST changes lead II, III, aVF CT Scan Findings: Chest CTA: IMPRESSION: 1. No evidence of pulmonary embolism. 2. Pulmonary emphysema and mild bronchial wall thickening of both lungs; correlate for history of chronic cigarette smoking. 3. Left lower lobe is completely collapsed. This is probably due to mucous plugging of the left lower lobe bronchus; however, unable to exclude underlying endobronchial nodule. Further evaluation with bronchoscopy may be required. There is no gross tumor or lymphadenopathy identified at the left hilum. A nonspecific, borderline-enlarged lymph node in the aortopulmonary window is 1.1 cm short axis dimension. 4. Atherosclerotic aorta is mildly dilated. The ascending aorta measures 4 cm diameter at the level of the right pulmonary artery. Impression/Plan Impression/Problem List Impression: Mr. Mcrae is a pleasant 71 year old male with PMH HTN, HLD and tobacco abuse who presented to [place] on 11/21/16 with chief complaint of shortnesss of breath, diaphoresis and substernal chest pain radiating down the left arm. Vital signs on admission: BP 105/70, RR 16, HR 90, O2 saturation of 95% on room air, afebrile. EKG showed NSR with ST depressions leads 2, 3, aVF. CXR was unremarkable. CTA showed no PE, definitive emphysema and left lower lobe collapse. Patient is currently admitted to the ICU and the following is the management: 1. NSTEMI * Continuous tele monitoring * IV heparin per protocol, hold heparin on transfer per Dr. Yokasta MD * ASA 81 daily, brilinta 90 mg PO daily, atorvastatin 80 mg PO daily * Discontinue metoprolol in setting of sinus bradycardia * Patient NPO for transfer to [facility] for cardiac cath today with possible stent placement, accepting physician Dr. Imer MD * Nitrobid PRN chest pain 2. Bronchitis * Continue levofloxacin to complete course that was started as an outpatient 3. LLL collapse * Further pulm workup as an outpatient with Dr. Jolene MD 2 weeks after discharge from * Consult information given to patient * Continue supplemental O2 as needed 4. Tobacco abuse * Cigarette cessation information provided FULL CODE DVTP: IV heparin NPO Mild pain pathway Problem List: 1. Non-STEMI (non-ST elevated myocardial infarction) 2. HTN (hypertension) 3. HLD (hyperlipidemia) 4. Tobacco abuse Pain Ratin Pain Location: Substernal Tomorrow's Labs & Rationales: Transfer to today. Plan DVT/Prophylaxis: pharmacological Code Status: Full Code
[2016-11-22 09:00] VITALS: BP 106/70
--- NOTE | 2016-11-22 10:16 | PN- Cardiology ---
Subjective Subjective: The patient reports that he is feeling well this morning. He had a brief recurrence of chest discomfort at 3:00 AM which responded immediately to sublingual nitroglycerin. No further chest pain. He notes occasional mild shortness of breath. No palpitations. No lightheadedness or dizziness. No nausea or vomiting. Objective Vital Signs and I&Os Vital Signs Date Time Temp Pulse Resp B/P B/P Pulse O2 O2 Flow FiO2 Mean Ox Delivery Rate 11/22 0407 96 Nasal 2.0L Cannula 11/22 0000 95 Room Air 11/22 0000 98.0 54 24 126/80 95 Room Air 11/21 2127 62 144/87 11/21 2000 97 Room Air 11/21 2000 97.6 60 24 128/72 98 Room Air 11/21 1835 97.4 60 18 110/76 94 Room Air 11/21 1632 98.6 65 18 121/76 98 Room Air 11/21 1455 98.6 64 18 105/72 98 Room Air 11/21 1129 98 Room Air 11/21 1116 97.1 90 16 105/72 95 Room Air Intake & Output 11/22 1600 11/22 0800 11/22 0000 11/21 1600 11/21 0800 11/21 0000 Intake Total 176 774 Output Total 600 1400 Balance -424 -626 Intake, IV 176 134 Intake, Oral 0 640 Number 2 Bowel Movements Output, Urine 600 1400 Patient 205 lb 205 lb Weight Weight Reported by Patient Reported by Patient Measurement Method Physical Exam: Gen: NAD HEENT: normal Lungs: clear to auscultation, normal resp. effort Heart: RRR, S1, S2, no murmurs Abdomen: Soft, nontender, no masses Extremities: No clubbing, cyanosis, or edema. Neuro: Alert and oriented x 3, cranial nerves intact Current Medications: Current Medications Sig/Kvng Start time Last Medication Dose Route Stop Time Status Admin Acetaminophen 650 MG Q6P PRN 11/21 1530 AC 11/22 PO 0839 Acetaminophen/ 1 TAB Q6P PRN 11/21 1530 AC Hydrocodone Bitart PO Aspirin 81 MG DAILY 11/22 1000 AC PO Aspirin 0 .STK-MED ONE 11/21 1517 DC PO Aspirin 325 MG ONCE ONE 11/21 1515 DC 11/21 PO 11/21 151 1515 Aspirin 325 MG ONCE ONE 11/21 1515 CAN PO 11/21 1516 Atorvastatin Calcium 80 MG 1700 11/22 1700 AC PO Atorvastatin Calcium 40 MG ONCE ONE 11/21 1845 DC 11/21 PO 11/21 Atorvastatin Calcium 40 MG 1700 11/21 1700 DC 11/21 PO 1632 Clopidogrel Bisulfate 75 MG DAILY 11/21 1610 DC 11/21 PO 1632 Heparin Sodium 2,790 UNIT BOLUS ONE 11/21 2300 DC 11/21 (Porcine) IV 11/21 2301 2300 Heparin Sodium 5,000 UNIT .STK-MED ONE 11/21 2300 DC (Porcine) IV 11/21 2301 Heparin Sodium 25,000 UNIT Q24H 11/21 1545 AC 11/21 (Porcine) IV 1609 Sodium Chloride 500 ML Levofloxacin 500 MG DAILY 11/21 1630 AC 11/21 PO 11/23 1001 1815 Magnesium Sulfate 1 GM ONCE ONE 11/22 0730 AC 11/22 Dextrose/Water 100 ML IV 11/22 1129 0844 Metoprolol Tartrate 12.5 MG BID 11/21 184 AC 11/21 PO 2127 Morphine Sulfate 2 MG Q4P PRN 11/21 1530 AC IV Multivitamins 1 TAB DAILY 11/22 1000 AC PO Nitroglycerin 1 GM ONCE ONE 11/22 0245 DC 11/22 TOP 11/22 0246 0301 Norepinephrine 4 MG Q24H 11/21 2145 DC Sodium Chloride 250 ML IV Potassium Chloride 10 MEQ Q1H 11/22 0930 AC IV 11/22 1031 Senna/Docusate Sodium 2 TAB ONCE ONE 11/21 2030 DC 11/21 PO 11/21 203 2127 Ticagrelor 90 MG DAILY 11/22 1000 AC PO Ticagrelor 180 MG ONCE ONE 11/21 184 DC 11/21 PO 11/21 184 213 Results Last 48 Hrs of Labs/Mics: Laboratory Tests 11/22/16 0520: Anion Gap 8, Estimated GFR > 60, Glucose 89, Calcium 8.3 L, Phosphorus 3.2, Magnesium 1.8, Total Bilirubin 1.3, AST 38, ALT 39, Albumin 3.2 L, APTT 95 H, CBC w Diff NO MAN DIFF REQ, RBC 4.88, MCV 91.9, MCH 31.1 H, RDW 13.1, MPV 9.9, Gran % 68.6, Lymphocytes % 22.2, Monocytes % 7.5, Eosinophils % 1.0, Basophils % 0.7, Absolute Granulocytes 6.4, Absolute Lymphocytes 2.1, Absolute Monocytes 0.7 H, Absolute Eosinophils 0.1, Absolute Basophils 0.1, PUBS MCHC 33.9 11/22/16 0200: Troponin I 1.67 *H 11/21/16 2137: APTT 57 H 11/21/16 2045: Troponin I 2.61 *H 11/21/16 1415: Troponin I 1.95 *H 11/21/16 1126: Anion Gap 15, Estimated GFR > 60, BUN/Creatinine Ratio 10.8, Glucose 100 H, Hemoglobin A1c 5.2, Calcium 9.0, Total Bilirubin 1.0, AST 31, ALT 45, Alkaline Phosphatase 88, Troponin I 0.10, Total Protein 6.8, Albumin 4.1, Globulin 2.7, Albumin/Globulin Ratio 1.5, Triglycerides 97, Cholesterol 133, LDL Cholesterol, Calc 77, HDL Cholesterol 37 L, Cholesterol/HDL Ratio 4, TSH 2.200, D-Dimer 390 H, CBC w Diff NO MAN DIFF REQ, RBC 5.32, MCV 90.2, MCH 31.0, RDW 13.1, MPV 9.8, Gran % 81.0 H, Lymphocytes % 11.8 L, Monocytes % 6.4, Eosinophils % 0.2, Basophils % 0.6, Absolute Granulocytes 9.2 H, Absolute Lymphocytes 1.3, Absolute Monocytes 0.7 H, Absolute Eosinophils 0, Absolute Basophils 0.1, PUBS MCHC 34.3 Recent Imaging Studies: Stress echo 09/30/16: No evidence of ischemia or infarct. Normal left ventricular function. Chest x-ray: Chronic changes. No acute pulmonary disease CTA chest: 1. No evidence of pulmonary embolism. 2. Pulmonary emphysema and mild bronchial wall thickening of both lungs; correlate for history of chronic cigarette smoking. 3. Left lower lobe is completely collapsed. This is probably due to mucous plugging of the left lower lobe bronchus; however, unable to exclude underlying endobronchial nodule. Further evaluation with bronchoscopy may be required. There is no gross tumor or lymphadenopathy identified at the left hilum. A nonspecific, borderline-enlarged lymph node in the aortopulmonary window is 1.1 cm short axis dimension. 4. Atherosclerotic aorta is mildly dilated. The ascending aorta measures 4 cm diameter at the level of the right pulmonary artery. EKG: Sinus bradycardia at 46 bpm, right bundle branch block Assessment/Plan Assessment/Plan Assessment: 1. Hypertension 2. Normal stress echo in September 2016 3. Acute non-ST elevation myocardial infarction, now pain-free. Peak troponin 2.61 4. Left lower lobe collapse on CT scan, possibly secondary to mucus plugging. Unable to exclude underlying endobronchial nodule. 5. Sinus bradycardia, with heart rate dropping into the 40s. 6. Tobacco abuse Plan: * The patient will be [facility] to [facility] for cardiac catheterization and possible stent placement. * Continue IV heparin for now, and hold heparin on transfer. * Continue Brilinta and aspirin. * Given sinus bradycardia in the 40s, would discontinue metoprolol. Continue telemetry? Yes
--- NOTE | 2016-11-22 18:42 | Cons- Pulmonary ---
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 He also experienced diaphoresis and had shortness of breath and had to stop from his paperwork. He was given 1 mg of aspirin in the field by his coworkers and then was brought to the emergency department for further evaluation. since he came in here he is chest pain-free. He was noted to have non-ST segment elevation LA. He is now being evaluated for a possible transfer to get an angiogram and possible stent procedure if he has acute active coronary ischemia as he did have significant chest pain at rest. The patient did not have any prior episodes similar to this. 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 This stress test was reviewed in the emergency department end of within normal limits with the patient also recently The patient was recently treated with acute bronchitis and is left with 3 days antibiotic therapy of levofloxacin.(He was given a course of 10 days of antibiotic therapy started from last 11/14/2016). His symptoms of acute bronchitis has resolved Since he came in here initial chest x-ray did not reveal any left lower lobe collapse however he did have a CT scan to evaluate other pathology which did show a complete left lower lobe collapse. There was no significant lesions noted endobronchially RD was no [place] tumor. This was done with contrast. When I saw him patient was very anxious and nervous and was interested in getting an angiogram and taking care of his heart first. No loss of weight He has had more than [id number] smoking history and is never had a pulmonary evaluation in the past Review of symptoms otherwise unremarkable Allergies/Medications Allergies: Coded Allergies: No Known Allergies (11/21/16) Home Med List: Aspirin (Aspirin*) 81 MG TAB.CHEW 1 TAB PO QPM HEART HEALTH (Reported) Atorvastatin Calcium 10 MG TABLET 1 TAB PO QPM CHOLESTEROL (Reported) Atorvastatin Calcium 80 MG TABLET 80 MG PO 1700 HYPERLIPIDEMIA Heparin Sod,Pork in 0.45% NaCl (Heparin-1/2NS 25,000 Units/250) 25,000 UNIT/250 ML (100 UNIT/ML) IV.SOLN 500 ML IV CONTINOUS INFUSION HEART HEALTH Levofloxacin 500 MG TABLET 1 TAB PO DAILY ANTIBIOTIC, INFECTION (Reported) Lisinopril 10 MG TABLET 1 TAB PO DAILY HEART (Reported) Metoprolol Tartrate 25 MG TABLET 12.5 MG PO BID BLOOD PRESSURE Ticagrelor (Brilinta) 90 MG TABLET 90 MG PO DAILY HEART HEALTH Review of Systems Review of Systems Constitutional: Reports: see HPI. Past History Travel History Traveled to [place] past 21 day No Medical History Blood Transfusion Hx: No Neurological: NONE EENT: cataracts, macular degeneration Cardiovascular: hypertension, HIGH CHOLESTEROL Respiratory: NONE Gastrointestinal: NONE Hepatic: NONE Renal: NONE Musculoskeletal: NONE Psychiatric: alcohol dependence Endocrine: NONE Blood Disorders: NONE Cancer(s): NONE UTILITY AIDE/Reproductive: NONE Surgical History Surgical History: CERVICAL DISCECTOMY Family History Relations & Conditions If Any: FATHER Relation not specified for: FH myocardial infarction male first degree age known Psychosocial History Where Do You Live? Home Who Do You Live With? spouse, child Services at Home: None Primary Language: Turkmen Smoking Status: Current Everyday Smoker ETOH Use: denies use Exam & Diagnostic Data Last 24 Hrs of Vital Signs/I&O Vital Signs Date Time Temp Pulse Resp B/P B/P Pulse O2 O2 Flow FiO2 Mean Ox Delivery Rate 11/22 0900 98.0 50 24 106/70 98 Room Air 11/22 0407 96 Nasal 2.0L Cannula 11/22 0000 95 Room Air 11/22 0000 98.0 54 24 126/80 95 Room Air 11/21 2127 62 144/87 11/22 1999 97 Room Air 11/22 1999 97.6 60 24 128/72 98 Room Air Intake & Output 11/22 1600 11/22 0800 11/22 0000 Intake Total 176 774 Output Total 600 1400 Balance -424 -626 Intake, IV 176 134 Intake, Oral 0 640 Number 2 Bowel Movements Output, Urine 600 1400 Patient 205 lb Weight Weight Reported by Patient Measurement Method Physical Exam Other Physical Findings: on exam room air sat was 99% Left lower lobe reduced breath sounds Chest decreased breath sounds on the left side no wheezing Heart S1-S2 was heard no murmurs Abdominal exam Sobol sounds were No cyanosis clubbing or edema All the data reviewed CT scan showed no significant tumor but complete collapse of the left lower lobe Last 48 Hrs of Labs/Vasyl: Laboratory Tests 11/22/16 1300: APTT Cancelled 11/22/16 0520: Anion Gap 8, Estimated GFR > 60, Glucose 89, Calcium 8.3 L, Phosphorus 3.2, Magnesium 1.8, Total Bilirubin 1.3, AST 38, ALT 39, Albumin 3.2 L, APTT 95 H, CBC w Diff NO MAN DIFF REQ, RBC 4.88, MCV 91.9, MCH 31.1 H, RDW 13.1, MPV 9.9, Gran % 68.6, Lymphocytes % 22.2, Monocytes % 7.5, Eosinophils % 1.0, Basophils % 0.7, Absolute Granulocytes 6.4, Absolute Lymphocytes 2.1, Absolute Monocytes 0.7 H, Absolute Eosinophils 0.1, Absolute Basophils 0.1, PUBS MCHC 33.9 11/22/16 0200: Troponin I 1.67 *H 11/21/16 2137: APTT 57 H 11/21/16 2045: Troponin I 2.61 *H 11/21/16 1415: Troponin I 1.95 *H 11/21/16 1126: Anion Gap 15, Estimated GFR > 60, BUN/Creatinine Ratio 10.8, Glucose 100 H, Hemoglobin A1c 5.2, Calcium 9.0, Total Bilirubin 1.0, AST 31, ALT 45, Alkaline Phosphatase 88, Troponin I 0.10, Total Protein 6.8, Albumin 4.1, Globulin 2.7, Albumin/Globulin Ratio 1.5, Triglycerides 97, Cholesterol 133, LDL Cholesterol, Calc 77, HDL Cholesterol 37 L, Cholesterol/HDL Ratio 4, TSH 2.200, D-Dimer 390 H, CBC w Diff NO MAN DIFF REQ, RBC 5.32, MCV 90.2, MCH 31.0, RDW 13.1, MPV 9.8, Gran % 81.0 H, Lymphocytes % 11.8 L, Monocytes % 6.4, Eosinophils % 0.2, Basophils % 0.6, Absolute Granulocytes 9.2 H, Absolute Lymphocytes 1.3, Absolute Monocytes 0.7 H, Absolute Eosinophils 0, Absolute Basophils 0.1, PUBS MCHC 34.3 Assessment/Plan Impression/Plan: IMPRESSION This is a gentleman with more than 50 pack years smoking history was actively smoking with recent evidence suggestive of thick yellow-green sputum with bronchitis now on appropriate antibiotics now has acute LA non-ST segment elevation with chest pain at rest which is now better after he's been aggressively treated. At this present time his issues include Acute LA with coronary ischemia. This takes precedence over all issues as this is a life-threatening issue. He will is going [facility] angiogram and possible angioplasty. His pulmonary issues include A left lower lobe collapse which appears to be new since he came into the hospital as his initial chest x-ray was not terribly impressive for a left lung especially lower lobe collapse. He may have a thick mucous plug as consolation of findings suggest acute purulent bronchitis. At this present time of advised him to continue his antibiotics and patient was advised to continue round-the- clock nebulizer therapy and a chest physical therapy for left lower lobe with Mucomyst will be advised once he goes to . Subsequently after his cardiac issue is resolved he was advised to follow-up with me in the next week or 2 so that we can formulate a plan for the future. Sputum culture will be ordered if able Patient is completely aware of appropriate follow-up. He is also aware that they could be malignancy issues as well and he is willing to make an appointment. My phone number was given to the patient and he wishes to call on his own as he wanted to take care of his heart issues at this present time and he accepts all risks of noncompliance She'll follow-up within the next 2 weeks. 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 Smoking cessation counseling was done extensively. Consult Acknowledgment - Thank you for your consult request.
== END 2016-11-22 10:30 | disposition short-term general hospital (02) | DRG 281 ==
LOC: ERH 11:01 → CRI 15:13 → ERHI 15:13 → ENRESERV 17:43 → CRI 18:50 → ENPENDDIS 11-22 10:35
PROVIDERS: Emergency Medicine; Student in an Organized Health Care Education/Training Program; ADMIT Internal Medicine Cardiovascular Disease
DX: I21.4 Non-ST elevation (NSTEMI) myocardial infarction (principal); J98.19 Other pulmonary collapse; I10 Essential (primary) hypertension; F17.210 Nicotine dependence, cigarettes, uncomplicated; J40 Bronchitis, not specified as acute or chronic; E78.5 Hyperlipidemia, unspecified
CPT/HCPCS: CCU; 36415; 82436; 93005; 93010; 96374; 99291; J1644; J3490; J7040